=== PATIENT | male | born 1930 | race Caucasian/White ===

== ENCOUNTER → 2016-11-15 | Outpatient (CLI) | payer MEDICARE | END | disposition home or self-care (01) | LOC: CFH 10:46 | PROVIDERS: ATTEND Internal Medicine Cardiovascular Disease | DX: I08.3 Combined rheumatic disorders of mitral, aortic and tricuspid valves (principal); J98.4 Other disorders of lung | CPT/HCPCS: 93306 ==

== ENCOUNTER → 2017-06-23 | Outpatient (CLI) | payer MEDICARE ==
[~2017-06-23] MED LIST: ASCO-96 PO; ASPI-496 PO; CHOL400T10 PO; OMEP-110 PO; PRAV40TA2 PO; VIT1CAPS42 PO; iron PO
== END | disposition home or self-care (01) ==
LOC: STAR 10:46
PROVIDERS: ATTEND Surgery
DX: Z01.818 Encounter for other preprocedural examination (principal); R94.31 Abnormal electrocardiogram [ECG] [EKG]; K40.90 Unilateral inguinal hernia, without obstruction or gangrene, not specified as recurrent
CPT/HCPCS: 93005

== ENCOUNTER 2017-06-27 07:39 | Day surgery (SDC) | payer MEDICARE ==
[~2017-06-27] VITALS: Ht 177.8 cm; Wt 83.2 kg
[~2017-06-27 07:39] MED LIST changes: +BUPIVACAINE/PF 0.5% ONE; +EPINEPHRINE 1 MG/ML, 1ML ONE
[2017-06-27] MEDS ORDERED: LACTATED RINGERS 1,000 ML IV SCH (08:16)
[2017-06-27 08:20] VITALS: BP 127/63
[2017-06-27] MEDS ORDERED: PHENYLEPHRINE 10 MG/ML ONE (09:22)
[2017-06-27] MEDS ORDERED: FENTANYL PF 100 MCG/2ML ONE (09:23)
[2017-06-27] MEDS ORDERED: DEXAMETHASONE 4 MG/ML, 1ML ONE ×2 (09:37→09:44)
[2017-06-27] MEDS ORDERED: ONDANSETRON 2MG/ML, 2ML ONE ×2 (09:38→09:44)
[2017-06-27] MEDS ORDERED: SUCCINYLCHOLINE 20 MG/ML, 10ML ONE (09:38)
[2017-06-27] MEDS ORDERED: ROCURONIUM 10 MG/ML,10ML ONE (09:38)
[2017-06-27] MEDS ORDERED: CEFAZOLIN 1,000 MG ONE ×2 (09:38→09:44)
[2017-06-27] MEDS ORDERED: PROPOFOL 10 MG/ML, 20ML ONE (09:38)
[2017-06-27] MEDS ORDERED: ONDANSETRON 2MG/ML, 2ML IVPush PRN (10:00)
[2017-06-27] MEDS ORDERED: PROMETHAZINE 25 MG/ML, 1ML IV PRN (10:00)
[2017-06-27] MEDS ORDERED: FENTANYL PF 100 MCG/2ML IV PRN (10:00)
[2017-06-27] MEDS ORDERED: hydrALAzine 20 MG/ML, 1ML IV PRN (10:00)
[2017-06-27] MEDS ORDERED: LABETALOL 5MG/ML, 20ML IV PRN (10:00)
[2017-06-27] MEDS ORDERED: ALBUTEROL SULFATE 2.5 MG/3 ML NPPB PRN (10:00)
[2017-06-27] MEDS ORDERED: ACETAMINOPHEN 325 MG TABLET PO PRN (10:00)
[2017-06-27] MEDS ORDERED: OXYcodone 5 MG/5 ML ORAL.SOL UDC PO PRN (10:00)
[2017-06-27] MEDS ORDERED: MEPERIDINE/PF 25MG/0.5ML IVPush PRN (10:00)
[2017-06-27] MEDS ORDERED: HYDROmorphone 1 MG/ML, 1ML IV PRN (10:00)
[2017-06-27] MEDS ORDERED: MIDAZOLAM 1 MG/ML, 2ML IV PRN (10:00)
[2017-06-27] MEDS ORDERED: KETOROLAC 30 MG/1 ML ONE (10:20)
== END 2017-06-27 14:00 ==
LOC: OUT 07:39
PROVIDERS: ATTEND Surgery
DX: K40.90 Unilateral inguinal hernia, without obstruction or gangrene, not specified as recurrent (principal); I25.10 Atherosclerotic heart disease of native coronary artery without angina pectoris; Z95.1 Presence of aortocoronary bypass graft; E78.5 Hyperlipidemia, unspecified; N18.3 Chronic kidney disease, stage 3 (moderate); Z85.038 Personal history of other malignant neoplasm of large intestine; Z88.8 Allergy status to other drugs, medicaments and biological substances
CPT/HCPCS: 49505; C1781; J0171; J0330; J0690; J1100; J1885; J2370; J2405; J2704; J3010; J3490; J7120

== ENCOUNTER → 2017-12-21 | Outpatient (CLI) | payer MEDICARE ==
[~2017-12-21] MED LIST changes: -BUPIVACAINE/PF 0.5% ONE; -EPINEPHRINE 1 MG/ML, 1ML ONE; +SIMV10TA3 PO
== END | disposition home or self-care (01) ==
LOC: RAD 11:45
PROVIDERS: ATTEND Internal Medicine
DX: J90 Pleural effusion, not elsewhere classified (principal); R91.8 Other nonspecific abnormal finding of lung field
CPT/HCPCS: 71046